=== PATIENT | female | born 1990 | race Caucasian/White ===

== ENCOUNTER 2024-01-22 22:54 | Emergency (ER) | payer BC, OTHER ==
[~2024-01-22] VITALS: Ht 177.8 cm; Wt 83.0 kg
[2024-01-22] MEDS ORDERED: ACETAMINOPHEN ES 500 MG TABLET ONE (23:29)
[2024-01-22] MEDS: ACETAMINOPHEN ES 500 MG TABLET PO ONE (23:31)
[2024-01-22 23:54] LABS: BASOPHILS % (AUTO) 0.6 % (0.0-2.0); EOSINOPHILS # (AUTO) 0.3 K/uL (0.0-0.7); EOSINOPHILS % (AUTO) 4.5 % (0.0-7.0); HEMATOCRIT 39.4 % (31.2-41.9); HEMOGLOBIN 13.1 g/dL (10.9-14.3); LYMPHOCYTES # (AUTO) 2.4 K/uL (0.8-4.8); LYMPHOCYTES % (AUTO) 33.4 % (20.5-51.5); MEAN CORPUSCULAR HEMOGLOBIN 30.7 uug (24.7-32.8); MEAN CORPUSCULAR HGB CONC 33 g/dL (32.3-35.6); MEAN CORPUSCULAR VOLUME 92.6 fL (75.5-95.3); MONOCYTES # (AUTO) 0.7 K/uL (0.1-1.30); MONOCYTES % (AUTO) 9.1 % (0.0-11.0); NEUTROPHILS # (AUTO) 3.8 K/uL (1.8-8.9); NEUTROPHILS % (AUTO) 52.4 % (38.5-71.5); PLATELET COUNT (AUTO) 357 K/uL (179-408); RED BLOOD CELL COUNT(AUTO) 4.25 MIL/uL (3.63-4.92); RED CELL DISTRIBUTION WIDTH 14.6 % (12.3-17.7); WHITE BLOOD COUNT (AUTO) 7.3 K/uL (3.8-11.8)
[2024-01-23] LABS: CALCIUM 8.9 mg/dL (8.5-10.1); CREATININE 0.8 mg/dL (0.6-1.3); POTASSIUM 3.8 mmol/L (3.5-5.1)
[2024-01-23 00:05] LABS: *URINE HCG, QUAL NEGATIVE (NEGATIVE); ALBUMIN 3.9 g/dL (3.4-5.0); BILIRUBIN,DIRECT 0.1 mg/dL (0.0-0.2); BILIRUBIN,TOTAL 0.5 mg/dL (0.2-1.0); TOTAL PROTEIN, SERUM 8.3 g/dL (6.4-8.2)
[2024-01-23 00:07] LABS: *BLOOD, URINE 1+ (NEGATIVE); *CLARITY,URINE CLEAR (CLEAR); *COLOR,URINE YELLOW (YELLOW); *KETONES,URINE 1+ (NEGATIVE); *PROTEIN,URINE 2+ (NEGATIVE); *UROBILINOGEN,URINE 0.2 E.U./dl (NORMAL); LEUKOCYTE ESTERASE ,URINE NEGATIVE (NEGATIVE); NITRITE, URINE NEGATIVE (NEGATIVE); UGLUCOSE NEGATIVE (NEGATIVE)
[2024-01-23 00:09] LABS: *BILIRUBIN,URIN 1+ (NEGATIVE)
[2024-01-23 00:17] LABS: BACTERIA,URINE FEW /HPF (NONE SEEN); SQUAMOUS EPITHELIAL CELL,UR MODERATE /HPF (NONE SEEN)
[2024-01-23 00:19] LABS: WBC,URINE 0-3 /HPF (0-3)
[2024-01-23] MEDS ORDERED: HYDR-3972 PO (02:02)
[2024-01-23 02:07] VITALS: BP 151/106; O2SAT 98
== END 2024-01-23 02:07 | disposition home or self-care (01) ==
LOC: ER 22:55
DX: R10.32 Left lower quadrant pain (principal); R10.2 Pelvic and perineal pain; Z79.899 Other long term (current) drug therapy
CPT/HCPCS: 36415; 83690; 84703; 85025; 85730; A4606; A4663; A9150

== ENCOUNTER 2024-03-26 20:20 | Emergency (ER) | payer BC ==
[~2024-03-26] VITALS: Ht 177.8 cm; Wt 77.1 kg
[~2024-03-26 20:20] MED LIST: HYDR-3972 PO
[2024-03-26] MEDS ORDERED: IBUPROFEN 400 MG TABLET ONE (20:55)
[2024-03-26] MEDS ORDERED: ACETAMINOPHEN 500 MG TABLET ONE (20:55)
[2024-03-26] MEDS: ACETAMINOPHEN 500 MG TABLET PO ONE (20:58)
[2024-03-26] MEDS: IBUPROFEN 400 MG TABLET PO ONE (20:58)
[2024-03-26 22:00] VITALS: BP 135/88; TEMP 97.9; O2SAT 99
== END 2024-03-26 21:53 | disposition home or self-care (01) ==
LOC: ER 20:21
DX: S99.821A Other specified injuries of right foot, initial encounter (principal); Z79.891 Long term (current) use of opiate analgesic; W20.8XXA Other cause of strike by thrown, projected or falling object, initial encounter; Y93.89 Activity, other specified; Y92.89 Other specified places as the place of occurrence of the external cause; Y99.8 Other external cause status
CPT/HCPCS: 73610; 73630; A4606; A4663; A9150